=== PATIENT | female | born 1960 | race Two or more races ===

== ENCOUNTER 2022-07-25 05:47 | Inpatient (IN) | payer OTHER ==
[~2022-07-25 05:47] MED LIST: ANESTHESIA TRAY IN PYXIS 1 EA TRAY MC ONE
[2022-07-25] MEDS ORDERED: POLYMYXIN B SULFATE 0 UNITS ONE (06:22)
[2022-07-25] MEDS ORDERED: BUPIVACAINE 0.5 % PF 150 MG/30 ML VIAL ONE (06:22)
[2022-07-25] MEDS ORDERED: ANESTHESIA TRAY IN PYXIS 1 EA TRAY MC ONE (06:45)
--- NOTE | 2022-07-25 06:54 | NUR ---
MS RN NOTES PATIENT ARRIVED AT 0635 TO THE UNIT WITH A FRIEND. PATIENT IS A/O TIMES 4. NO PAIN NOTED. NO SOB NOTED. NO DISTRESS NOTED. PATIENT NOTED WITH ANXIETY AND CRYING. TRYING TO GIVE COMFORT TO THE PATIENT. ALL THE CONSENTS SIGNED. IV ACCESS RIGHT WRIST G # 22 INSERTED BY OR NURSE. ALL NEEDS ATTENDED. PATIENT AWAITING TO BE TRANSFER TO OR. WILL ENDORSE TO INCOMING SHIFT FOR ZAHEER.
--- NOTE | 2022-07-25 07:31 | NUR ---
MS RN OPENING NOTES: RECEIVED PT IN BED AWAKE, ALERT AND ORIENTED X 4 AND ABLE TO MAKE NEEDS KNOWN. NO SOB OR CARDIAC DISTRESS NOTED, ON NPO. AND SCHEDULE FOR SURGERY. IV ACCESS ON RIGHT WRIST GAUGE 22, PATENT INTACT AND SL. SAFETY MEASURES MAINTAINED: BED LOCKED AND IN LOWEST POSITION SIDE RAILS UP X 2, CALL LIGHT IN EASY REACH FOR HELP. WILL MONITOR ACCORDINGLY. @0738 PATIENT WAS PICKED UP FOR SURGERY. PT LEFT THE UNIT STABLE.
--- NOTE | 2022-07-25 08:00 | NUR ---
RN NOTES: PT WENT BACK TO [facility], SURGERY CANCELLED PER RN ARMINDA PT TOOK MEDS THAT SHOULD BE HELD FOR 7 DAYS. MEDS TO BE HELD FOR 7 DAYS SUCH : IBUPROFEN, PRILOSEC, GEMFIBROZIL, PHENTAMINE, PT MADE AWARE AND VERBALIZED UNDERSTANDING. NO FURTHER DISCHARGE INSTRUCTIONS, ALL BELONGINGS TAKEN WITH THE PT. IV ACCESS REMOVED. PATIENT LEFT THE UNIT STABLE.
== END 2022-07-25 08:15 | disposition home or self-care (01) | DRG 554 ==
LOC: DS 05:47 → MED 05:49
PROVIDERS: ADMIT Internal Medicine; ATTEND Internal Medicine
DX: M16.11 Unilateral primary osteoarthritis, right hip (principal); I10 Essential (primary) hypertension; E66.01 Morbid (severe) obesity due to excess calories; Z53.09 Procedure and treatment not carried out because of other contraindication
CPT/HCPCS: 36415; 86850-TC; 87081-TC; G0378; J3490

== ENCOUNTER 2022-08-03 05:30 | Inpatient (IN) | payer OTHER ==
[~2022-08-03] VITALS: Ht 167.6 cm; Wt 109.8 kg
[2022-08-03] VITALS (8 sets, daily range): BP systolic 119–143; BP diastolic 67–78
[2022-08-03] MEDS ORDERED: BUPIVACAINE 0.5 % PF 150 MG/30 ML VIAL ONE (06:05)
[2022-08-03] MEDS ORDERED: POLYMYXIN B SULFATE 500,000 UNITS ONE (06:05)
[2022-08-03] MEDS ORDERED: FENTANYL PF 100MCG/2ML AMPUL ONE ×3 (06:07→09:04)
[2022-08-03] MEDS ORDERED: ROCURONIUM BROMIDE 50 MG/5 ML ONE ×2 (06:07→07:14)
[2022-08-03] MEDS ORDERED: TRANEXAMIC ACID 3,000 MG in SODIUM CHLORIDE IRRIG SOLUTION 70 ML IR ONE (07:00)
[2022-08-03] MEDS ORDERED: HYDROMORPHONE INJ 2 MG/ML DISP.SYRIN ONE (07:14)
--- NOTE | 2022-08-03 07:30 | NUR ---
MS RN NOTES PATIENT ARRIVED UNIT AT 0600 AM. 2 GRANDSONS WERE WITH THE PATIENT. PATIENT A/O TIMES 4. NO PAIN NOTED. NO SOB NOTED. NO DISTRESS NOTED. PATIENT IS ANXIOUS ABOUT SURGERY. PATIENT AMBULATORY. ALL THE BELONGINGS ACCOUNTED AND SIGNED FOR.ALL THE CONSENTS FOR SURGERY SIGNED BY THE PATIENT. ALL NEEDS ATTENDED. PATIENT LEFT UNIT FOR SURGERY AROUND 0700 AM.
--- NOTE | 2022-08-03 07:35 | NUR ---
MS RN OPENING NOTES: RECEIVED PT IN HER BED AND FOR TRANSPORT TO SURGERY. PT NOTED CRYING, ALERT AND ORIENTED X 3-4. NO SOB OR CARDIAC DISTRESS. ACCOMPANIED BY RN AND TRANSPORTER. RECEIVED ENDORSEMENT FROM MEDICAL LIBRARY ASSISTANT RN. PT LEFT THE UNIT AWAKE, WITH 2 GRANDSON ACCOMPANIED PT.
--- NOTE | 2022-08-03 09:58 | NUR ---
RN NOTES: S/P RIGHT HIP TOTAL ARTHROPLASTY. PT WAS TRANSPORTED BY RN AND TRANSPORTER VIA BED, PT ASLEEP EASILY AROUSED WITH STIMULI. A/O X 4 AND ABLE TO MAKE NEEDS KNOWN. NO SOB OR CARDIAC DISTRESS, PER ENDORSEMENT PT HAD FENTANYL IV SO THEY ATTACHED HER TO O2 INHALATION @ 2LPM VIA NC FOR COMFORT. PT DENIES PAIN AT THIS TIME. IV ACCESS ON LEFT HAND GAUGE 20 PATENT INTACT AND INFUSING LR 12O ML/HR. NOTED WITH DRY DRESSING ON RIGHT HIP, NO DISCHARGES NOTED,ABDUCTION PILLOW IN PLACE. SAFETY MEASURES INITIATED: BED LOCKED AND IN LOWEST POSITION, SIDE RAILS UP X 2. CALL LIGHT IN EASY REACH FOR HELP. WILL MONITOR PT ACCORDINGLY.
[2022-08-03] MEDS ORDERED: BISACODYL SUPP (10 MG) 10 MG/SUPP.RECT SUPP.RECT RC PRN (10:00)
[2022-08-03] MEDS ORDERED: SENNOSIDES 8.6 MG TABLET PO PRN (10:00)
[2022-08-03] MEDS ORDERED: ZOLPIDEM TARTRATE 5 MG TABLET PO PRN (10:00)
[2022-08-03] MEDS ORDERED: ACETAMINOPHEN 325 MG TABLET PO PRN (10:00)
[2022-08-03] MEDS ORDERED: DOCUSATE SODIUM 250 MG CAPSULE PO PRN (10:00)
[2022-08-03] MEDS: IV LR 1000 ML 1,000 ML IV PRN ×2 (10:11→21:45)
[2022-08-03] MEDS: ASPIRIN 325 MG TABLET PO SCH (10:39)
[2022-08-03] MEDS: HYDROCODONE/APAP 5/325MG TABLET PO PRN ×2 (13:57→18:57)
[2022-08-03] MEDS: ANCEF 1 GM/50 ML D5W IV SCH ×4 (14:18→23:37)
--- NOTE | 2022-08-03 17:53 | NUR ---
RN NOTES: WEIGHT BEARING STATUS: PER DR MIR (ACCOUNT SUPPORT REP LIZZY) WBAT WITH POSTERIOR HIP PREC. INFORMED PT.
--- NOTE | 2022-08-03 19:00 | NUR ---
MS RN CLOSING NOTES: PT ASLEEP EASILY AROUSED WITH STIMULI. A/O X 4 AND ABLE TO MAKE NEEDS KNOWN. NO SOB OR CARDIAC DISTRESS, PAIN MANAGEMENT ORDERED. TO O2 INHALATION @ 2LPM VIA NC FOR COMFORT. . IV ACCESS ON LEFT HAND GAUGE 20 PATENT INTACT AND INFUSING LR 12O ML/HR. NOTED WITH DRY DRESSING ON RIGHT HIP, NO UNUSUAL DISCHARGES NOTED,ABDUCTION PILLOW IN PLACE. SAFETY MEASURES INITIATED: BED LOCKED AND IN LOWEST POSITION, SIDE RAILS UP X 2. CALL LIGHT IN EASY REACH FOR HELP. WILL MONITOR PT ACCORDINGLY. ENDORSED TO LOT PORTER RN FOR ZAHEER.
--- NOTE | 2022-08-03 19:54 | NUR ---
RN OPENING NOTE PATIENT AWAKE IN BED. A/OX4. NO S/S OF DISTRESS, BREATHING WITHOUT DIFFICULTY ON 2L NC. L-HAND #20 INTACT AND PATENT W/ LR 120ML/HR. SAFETY MEASURES IN PLACE: BED LOCKED AND AT LOWEST POSITION, RAILS UP X2, CALL [place]OVAN WITHIN REACH. WILL CONTINUE TO MONITOR PATIENT.
[2022-08-04] MEDS: HYDROCODONE/APAP 5/325MG TABLET PO PRN ×2 (01:48→15:40)
[2022-08-04] MEDS: HYDROMORPHONE 1 MG/1 ML DISP.SYRIN IV PRN ×3 (06:09→22:05)
[2022-08-04] MEDS: IV LR 1000 ML 1,000 ML IV PRN ×2 (06:28→15:58)
[2022-08-04 06:33] LABS: HEMOGLOBIN 10.5 g/dL (11.5-14.8)
--- NOTE | 2022-08-04 07:00 | NUR ---
RN CLOSING NOTE PATIENT AWAKE IN BED. A/OX4. NO S/S OF DISTRESS, BREATHING WITHOUT DIFFICULTY ON 2L NC. L-HAND #20 INTACT AND PATENT W/ LR 120ML/HR. SAFETY MEASURES IN PLACE: BED LOCKED AND AT LOWEST POSITION, RAILS UP X2, CALL DONOVAN WITHIN REACH. WILL ENDORSE TO NEXT SHIFT FOR ZAHEER.
--- NOTE | 2022-08-04 07:05 | NUR ---
MS RN OPENING NOTES: RECEIVED PT ASLEEP EASILY AROUSED WITH STIMULI. A/O X 4 AND ABLE TO MAKE NEEDS KNOWN. NO SOB OR CARDIAC DISTRESS, PAIN MANAGEMENT ORDERED. TO O2 INHALATION @ 2LPM VIA NC FOR COMFORT. IV ACCESS ON LEFT HAND GAUGE 20 PATENT INTACT AND INFUSING LR 12O ML/HR. NOTED WITH DRY DRESSING ON RIGHT HIP, NO UNUSUAL DISCHARGES NOTED,ABDUCTION PILLOW IN PLACE. SAFETY MEASURES MAINTAINED: BED LOCKED AND IN LOWEST POSITION, SIDE RAILS UP X 2. CALL LIGHT IN EASY REACH FOR HELP. WILL MONITOR PT ACCORDINGLY.
[2022-08-04 08:00] VITALS: BP 134/68
[2022-08-04] MEDS: ASPIRIN 325 MG TABLET PO SCH (08:28)
[2022-08-04 16:00] VITALS: BP 124/60
--- NOTE | 2022-08-04 19:33 | NUR ---
MS RN CLOSING NOTES: PT ASLEEP EASILY AROUSED WITH STIMULI. A/O X 4 AND ABLE TO MAKE NEEDS KNOWN. NO SOB OR CARDIAC DISTRESS, PAIN MANAGEMENT ORDERED. TO O2 INHALATION @ 2LPM VIA NC FOR COMFORT.IV ACCESS ON LEFT HAND GAUGE 20 PATENT INTACT AND INFUSING LR 12O ML/HR. NOTED WITH DRY DRESSING ON RIGHT HIP, NO UNUSUAL DISCHARGES NOTED,ABDUCTION PILLOW IN PLACE.PT IS AMBULATORY WITH WALKER AND BEEN USING THE REST ROOM. SAFETY MEASURES INITIATED: BED LOCKED AND IN LOWEST POSITION, SIDE RAILS UP X 2. CALL LIGHT IN EASY REACH FOR HELP. WILL MONITOR PT ACCORDINGLY. ENDORSED TO VOLUNTEER SERVICES MANAGER RN FOR ZAHEER.
[2022-08-04 20:00] VITALS: BP 130/61
--- NOTE | 2022-08-04 20:00 | NUR ---
MS RADIOSONDE SPECIALIST INITIAL NOTES RECEIVED PT IN BED AWAKE AND ALERT NOT IN ANY ACUTE DISTRESS OR ANY DISCOMFORT. RE-APPLIED THE DVT PUMP ON HER LOWER LEGS. IVF LR AT 120ML/HR INFUSING ON HER LEFT HAND, PATENT AND INTACT. PAIN SUBSIDE AFTER PAIN MEDICATION GIVEN EARLIER. KEPT HER WARM AND COMFORTABLE AT ALL TIMES. WILL CONTINUE MONITORING. PLACE CALL LIGHT AT REACH.
--- NOTE | 2022-08-04 22:07 | NUR ---
HIP PAIN Patient ambulated to the bathroom, back to bed c/o right hip pain 9/10 described as aching too much. Given IV Dilaudid. Fall precaution maintained.
[2022-08-05] MEDS: HYDROCODONE/APAP 5/325MG TABLET PO PRN ×4 (02:19→22:35)
--- NOTE | 2022-08-05 02:20 | NUR ---
farmworker dairy notes Pt woke up and complaining of pain on her right hip 12/29, [place] tablet given as ordered. will continue monitoring.
--- NOTE | 2022-08-05 07:45 | NUR ---
MS SPOUT TENDER CLOSING NOTES PT AWAKE AND ALERT WATCHING TV AT THIS TIME. NOT IN ANY DISCOMFORT NOTE. STILL ON IVF LR AT 120 ML/HR. ALL DUE MEDS GIVEN AND ALL NEEDS MET. KEPT HER WARM AND COMFORTABLE AT ALL TIMES. WILL ENDORSE TO AM NURSE FOR CONTINUITY OF CARE.
--- NOTE | 2022-08-05 07:49 | NUR ---
RN OPENING NOTES RECEIVED PATIENT ON BED. CONSCIOUS AND COHERENT ABLE TO VERBALIZED CONCERNS. AT ROOM AIR. WITH ONGOING IVF AT LEFT HAND #20G LR AT 120ML/HR INFUSING WELL. AMBULATES WITH WALKER. NO PAIN NOTED. NO SOB NOTED. SAFETY PRECAUTIONS MAINTAINED. PLACED BED AT LOWEST, LOCKED POSITION WITH SR UP.CALL LIGHT MAINTAINED WITHIN REACH. WILL CONTINUE TO MONITOR THROUGHOUT SHIFT.
[2022-08-05 08:13] VITALS: BP 132/62
[2022-08-05] MEDS: ASPIRIN 325 MG TABLET PO SCH (08:39)
[2022-08-05] MEDS: IV LR 1000 ML 1,000 ML IV PRN (09:05)
[2022-08-05 16:37] VITALS: BP 142/60
--- NOTE | 2022-08-05 19:10 | NUR ---
RN CLOSING NOTES PATIENT LYING ON BED. A/O X4. ABLE TO VERBALIZED NEEDS. AMBULATE WITH ASSISTANCE.WALK WITH WALKER. WITH ONGOING IVF LR AT 120ML/HR AT LEFT HAND #20G INFUSING WELL. NO S/S OF RESPIRATORY DISTRESS. ALL DUE MEDICATIONS GIVEN. SAFETY PRECAUTIONS MAINTAINED. ED IN BED AT LOWEST LOCKED POSITION, SIDE RAILS UP X 2, CALL LIGHT WITHIN REACH. ALL NEEDS MET. WILL ENDORSE TO BARTENDER MANAGER FOR ZAHEER.
--- NOTE | 2022-08-05 19:40 | NUR ---
MS RN OPENING NOTE RECEIVED PATIENT IN BED; AWAKE, ALERT AND ORIENTED X 4. ON ROOM AIR; WELL TOLERATED. BREATHING EVENLY AND NONLABORED. IN NO ACUTE DISTRESS. NO C/O ANY PAIN OR DISCOMFORT AT THIS TIME. WITH IV ACCESS ON LEFT HAND 20G; PATENT AND INTACT RUNNING WITH LR 1L REGULATED @ 120 ML/HR; FLUSHES WELL. ABLE TO MAKE NEEDS KNOWN. SAFETY PRECAUTIONS IMPLEMENTED: CALL LIGHT AND TABLE WITHIN REACH, SIDE RAILS UP 2, BED IN LOWEST LOCKED POSITION. WILL CONTINUE TO MONITOR
[2022-08-05 20:00] VITALS: BP 142/71
--- NOTE | 2022-08-05 22:35 | NUR ---
RN NOTE PATIENT COMPLAINED OF RIGHT HIP PAIN 01/28. PRN NORCO 5/325 MG 2 TAB GIVEN PO ORDERED. WILL CONTINUE TO MONITOR AND REASSESS PT.
[2022-08-06] MEDS: HYDROCODONE/APAP 5/325MG TABLET PO PRN ×3 (04:39→20:01)
--- NOTE | 2022-08-06 04:39 | NUR ---
RN NOTE PATIENT COMPLAINED OF RIGHT HIP PAIN, 7/10 PAIN SCALE. PRN NORCO 5/325 MG 2 TAB GIVEN PO ORDERED. KEPT COMFORTABLE IN BED. WILL CONTINUE TO MONITOR AND REASSESS PT.
[2022-08-06] MEDS: IV LR 1000 ML 1,000 ML IV PRN (05:55)
--- NOTE | 2022-08-06 06:45 | NUR ---
MS RN CLOSING NOTE PATIENT IN BED; AWAKE, A/O X 4. STABLE ON ROOM AIR. IN NO APPARENT DISTRESS. NO C/O ANY PAIN OR DISCOMFORT AT THIS TIME. WITH IV ACCESS ON LEFT HAND 20G; PATENT AND INTACT RUNNING WITH LR 1L REGULATED @ 120 ML/HR; FLUSHES WELL. ALL DUE MEDS GIVEN ORDERED. SAFETY PRECAUTIONS MAINTAINED: CALL LIGHT AND TABLE WITHIN REACH, SIDE RAILS UP 2, BED IN LOWEST LOCKED POSITION. ENDORSED TO MORNING SHIFT FOR ZAHEER.
--- NOTE | 2022-08-06 07:32 | NUR ---
RN OPENING NOTES PATIENT IN BED; AWAKE, A/O X 4. STABLE ON ROOM AIR. IN NO APPARENT DISTRESS. NO C/O ANY PAIN OR DISCOMFORT AT THIS TIME. WITH IV ACCESS ON LEFT HAND 20G; PATENT AND INTACT RUNNING WITH LR 1L REGULATED @ 120 ML/HR; FLUSHES WELL. HOOKED TO OXYGEN AT 2 LPM VIA NC NO COMPLAIN OF . SAFETY PRECAUTIONS MAINTAINED. KEPT SR UP X 3 ALL THE TIMES. WILL CONTINUE TO MONITOR PATIENT.
[2022-08-06 08:00] VITALS: BP 119/64
[2022-08-06] MEDS: ASPIRIN 325 MG TABLET PO SCH (08:28)
[2022-08-06 16:00] VITALS: BP 137/64
--- NOTE | 2022-08-06 18:48 | NUR ---
RN CLOSING NOTES PATIENT LYING IN BED. CONSCIOUS AND COHERENT. ABLE TO AMBULATE WITH ASSISTANCE. WITH ONGOING LR AT LEFT HAND #20G AT 12O ML/HR INFUSING WELL. PATIENT ABLE TO TOLERATE ROOM AIR. NO S/S SOB AND DISTRESS. ALL DUE MEDICATIONS GIVEN. ALL NEEDS MET. SAFETY MEASURES MAINTAINED, BED IN LOWEST LOCKED POSITION. SIDE RAILS UP X 3, CALL LIGHT WITHIN REACHED. WILL ENDORSED TO AQUARIUM SPECIALIST FOR ZAHEER.
--- NOTE | 2022-08-06 19:30 | NUR ---
MS RN NOTES RECEIVED ON BED A/O X4,BREATHING NORMAL,NOT IN ANY FORM OF DISTRESS.S/P RIGHT ARTHROPLASTY,DRESSING INTACT AND DRY,HIP ABDUCTOR IN PLACE.LR ON HOLD FOR NOW PER PATIENT REQUEST.LEFT HAND SALINE LOCK INTACT AND PATENT.C/O RIGHT HIP PAIN 9/10 ON PAIN SCALE.WILL MEDICATE.CALL LIGHT IN REACH,NEEDS ANTICIPATED.
[2022-08-06 20:00] VITALS: BP 129/58
--- NOTE | 2022-08-06 20:00 | NUR ---
MS RN NOTES PAIN MANAGEMENT OFFERED DILAUDID IV FOR PAIN.REFUSED,SHE PREFERS NORCO.MEDICATED WITH NORCO 5/325MG,2 TABS PO GIVEN ORDERED AND PER PATIENT,VITAL SIGNS STABLE.
[2022-08-07] MEDS: HYDROCODONE/APAP 5/325MG TABLET PO PRN ×3 (01:47→15:52)
--- NOTE | 2022-08-07 01:47 | NUR ---
MS RN NOTES AWAKE,ASSISTED BY LISBET OAKES TO THE BATHROOM.BACK TO BED IN PAIN 6/10 ON PAIN SCALE.NORCO 5/325MG,2 TABS PO GIVEN FOR MODERATE PAIN.VITAL SIGNS STABLE.
--- NOTE | 2022-08-07 06:39 | NUR ---
MS RN NOTES FAIRLY RESTED AT NIGHT,PAIN MANAGEMENT EFFECTIVE,ABLE TO WALK WITH WALKER TO THE BATHROOM WITH STANDBY ASSIST.DRESSING TO RIGHT HIP INTACT AND DRY.IVF REFUSED.CALL [facility] IN REACH,NEEDS ATTENDED.
--- NOTE | 2022-08-07 07:48 | NUR ---
RN OPENING NOTES RECEIVED PATIENT LYING ON BED. HOOKED TO OXYGEN VIA NASAL CANNULA AT 2LPM. REMOVED HEPLOCK AT LEFT HAND AND PUT DRY DRY DRESSING. NO SIGNS OF DISTRESS AT THIS TIME. NO COMPLAINS OF PAIN. SAFETY PRECAUTIONS MEASURED MAINTAINED. KEPT SIDE RAILS UP X 2. WILL CONTINUE TO MONITOR.
[2022-08-07 08:00] VITALS: BP 137/57
--- NOTE | 2022-08-07 08:00 | NUR ---
RN NOTES PATIENTS REFUSED IV LINE INSERTION. WILL CONTINUE TO MONITOR.
[2022-08-07] MEDS: ASPIRIN 325 MG TABLET PO SCH (08:29)
[2022-08-07] MEDS ORDERED: ASPI-992 PO (11:49)
--- NOTE | 2022-08-07 16:33 | NUR ---
ANIMAL CARE PROVIDER NOTES RECEIVED ORDER FOR DISCHARGE. PATIENT IS A/O X4, ABLE TO VERBALIZED NEEDS. PATIENT IS BREATHING EVENLY AND UNLABORED ON ROOM AIR. NO SIGNS OF DISTRESS NOTED. PATIENT DOES NOT COMPLAIN OF PAIN AT THIS TIME. PATIENT WAS GIVEN DISCHARGE INSTRUCTIONS BOTH VERBALLY AND IN WRITTEN FORM, VERBALIZED UNDERSTANDING. PATIENT BELONGINGS ACCOUNTED FOR, BELONGING SHEET SIGNED. SURGICAL SITE DRY AND INTACT. NO SIGNS OF BLEEDING NOTED; PATIENT WENT HOME WITH BEDSIDE COMMODE AND WALKER ;PATIENT LEFT IN STABLE CONDITION VIA PRIVATE CAR WITH FAMILY PRESENT
== END 2022-08-07 15:59 | disposition home health service (06) | DRG 470 ==
LOC: DS 05:30 → MED 05:33
PROVIDERS: ADMIT Internal Medicine; ATTEND Nurse Practitioner Acute Care
PROC: 0SR90JZ Replacement of Right Hip Joint with Synthetic Substitute, Open Approach (ICD-10-PCS; principal; 2022-08-03)
DX: M16.11 Unilateral primary osteoarthritis, right hip (principal); Z20.822 Contact with and (suspected) exposure to COVID-19; E66.9 Obesity, unspecified; Z68.39 Body mass index [BMI] 39.0-39.9, adult; R73.03 Prediabetes; E78.5 Hyperlipidemia, unspecified; Y99.0 Civilian activity done for income or pay; Z88.5 Allergy status to narcotic agent; E78.00 Pure hypercholesterolemia, unspecified; Z87.81 Personal history of (healed) traumatic fracture
CPT/HCPCS: 36415; 85027-TC; 87081-TC; 88305-TC; 88311-TC; 97110-TC; 97112-TC; 97116-TC; 97530-TC; A4217; A6209; A6402; C1776; G0378; J0330; J0360; J0690; J1100; J1170; J1885; J2405; J2704; J2765; J3010; J3490; J7030; J7060; J7120